=== PATIENT | male | born 1990 | race Caucasian/White ===

== ENCOUNTER 2016-12-26 03:54 | Emergency (ER) | payer OTHER ==
[~2016-12-26] VITALS: Ht 180.3 cm; Wt 93.1 kg
[2016-12-26 03:56] VITALS: BP 122/79; PULSE 102; RESP 16; O2SAT 97
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
[2016-12-26 06:39] VITALS: BP 125/83; PULSE 88; RESP 16; O2SAT 99
[2016-12-26 06:49] VITALS: BP 125/83; PULSE 88; RESP 16; O2SAT 99
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
== END 2016-12-26 06:49 | disposition home or self-care (01) ==
LOC: SED 03:54
DX: S09.8XXA Other specified injuries of head, initial encounter (principal); V48.5XXA Car driver injured in noncollision transport accident in traffic accident, initial encounter; Y93.89 Activity, other specified; Y92.828 Other wilderness area as the place of occurrence of the external cause; Y99.8 Other external cause status; F10.129 Alcohol abuse with intoxication, unspecified; F17.200 Nicotine dependence, unspecified, uncomplicated; Z88.0 Allergy status to penicillin